=== PATIENT | male | born 1965 | race African-American/Black ===

== ENCOUNTER 2022-01-08 11:40 | Emergency (ER) | payer SELFPAY ==
[~2022-01-08] VITALS: Ht 172.7 cm; Wt 67.6 kg
[2022-01-08] MEDS ORDERED: ONDANSETRON HCL 4MG/2ML INJ IV STA (11:47)
[2022-01-08] MEDS ORDERED: FENTANYL CITRATE/PF 50MCG/ML 2ML VIAL IV ONE (12:00)
[2022-01-08 12:16] VITALS: BP 126/84
[2022-01-08 13:00] LABS: HEMATOCRIT. 23.3 % (42.0-52.0); HEMOGLOBIN. 7.6 g/dL (14.0-18.0); MEAN CORPUSCULAR HEMOGLOBIN 28.6 pg (28.0-32.0); MEAN CORPUSCULAR VOLUME 87.8 fL (80.0-94.0); MEAN PLATELET VOLUME 7.3 fl (7.4-10.4); PLATELET 160 x1000/uL (130-400); RED BLOOD CELL COUNT 2.66 mill/uL (4.7-6.1); RED CELL DISTRIBUTION WIDTH 22.5 % (11.6-14.6)
[2022-01-08 13:11] LABS: CHLORIDE 112 mEq/L (98-107); PARTIAL THROMBOPLASTIN TIME 23.8 sec (23.4-31.0); PROTHROMBIN TIME 10.7 sec (9.6-11.0)
[2022-01-08 13:19] LABS: ETHANOL BLOOD < 10 mg/dL
[2022-01-08 14:04] LABS: PLATELET ESTIMATE NORMAL
== END 2022-01-08 12:58 | disposition left against medical advice (07) ==
LOC: ER 11:40 → CANBEDREQ 01-09 20:17
DX: I63.9 Cerebral infarction, unspecified (principal); G81.04 Flaccid hemiplegia affecting left nondominant side; N20.0 Calculus of kidney; N28.1 Cyst of kidney, acquired; D72.819 Decreased white blood cell count, unspecified; D64.9 Anemia, unspecified; R45.1 Restlessness and agitation; Z85.118 Personal history of other malignant neoplasm of bronchus and lung; Z85.47 Personal history of malignant neoplasm of testis
CPT/HCPCS: 36415; 70450; 74176; 80053; 80320; 82962; 83605; 83690; 85025; 85610; 85730; 87040; 93005; 99291; J3010; J2405; G0480